=== PATIENT | male | born 2000 | race Caucasian/White ===

== ENCOUNTER 2021-11-02 18:14 | Emergency (ER) | payer OTHER, SELFPAY ==
[2021-11-02 18:15] VITALS: BP 162/84; PULSE 93; RESP 14; TEMP 36.2; O2SAT 98; BMI 23.2
--- NOTE | 2021-11-02 18:42 | EX.ED.UPPERE ---
HPI History of Present Illness HPI Narrative: Patient presents with right hand injury that occurred 4 days ago. Patient states that his thumb was hyperextended. Patient denies any snapping or popping sensation. Patient states pain is constant. Patient describes the pain as sharp. Patient states it is worse with movement and better with rest. Patient denies any paresthesias or weakness. Patient denies any other injuries. Chief Complaint: Upper Extremity Injury Informant: patient Occured/Mechanism Comment: Hyperextension right thumb Onset/Context/Timing Onset: Days (4) Worsened by: Movement Relieved by: Rest Associated Symptoms Associated Symptoms: Negative for Parasthesia, Weakness and Loss of Funtion PFSH PFSH Medical History no medical history no medical history Home Medications NK 11/02/21 [History Last Taken Unknown] Allergy/AdvReac Type Severity Reaction Status Date / Time No Known Allergies Allergy Verified 11/02/21 18:17 Surgical History no surgical history no surgical history Social History Smoking Status: Unknown if ever smoked ROS ROS ED Constitutional Constitutional ED: Denies chills or fever(s) Eyes Eyes: Denies blurry vision or change in vision ENT ENT ED: Reports rhinorrhea; Denies sore throat Cardiovascular Cardiovascular: Denies chest pain or palpitations Respiratory/Chest Respiratory/Chest: Denies cough or dyspnea Gastrointestinal Gastrointestinal: Denies nausea or vomiting Genitourinary Genitourinary ED: Denies dysuria or hematuria Musculoskeletal Musculoskeletal: Denies back pain or neck pain Integumentary Denies abscess or rash Neurologic Neurologic: Denies headache(s) or weakness Allergic/Immunologic Allergic/Immunologic ED: Denies mouth swelling or urticaria EXAM Physical Exam Const Vital Signs: 11/02/21 18:15 Temperature 97.2 F L Temperature Source Temporal Pulse Rate 93 Respiratory Rate 14 Blood Pressure 162/84 H Blood Pressure Mean 110 Pulse Ox 98 Oxygen Delivery Method Room Air Positive well nourished and well developed General Appearance ED: well developed and NAD HEENT Reports moist mucous membranes Neck full ROM Extremity Extremity Narrative: There is tenderness over the right first metacarpal and MP joint. There is no obvious deformity noted. Range of motion was limited in flexion of the MP joint of the right thumb secondary to pain. There is no tenderness over the second metacarpal. There is no tenderness over the anatomic snuffbox. Sensation was intact to light touch in all digits. Capillary refill was less than 2 seconds in all digits. Radial pulses are equal bilaterally. Neuro oriented x3, CN's II-XII intact bilaterally, moves all extremities, no focal motor deficits and no sensory deficits noted Sensorium / Orientation: alert Psych mental status grossly normal MDM MDM MDM Narrative Medical decision making narrative: X-rays of the right hand were obtained. There are 3 views. On my interpretation, there is no acute fracture. There is no dislocation. There is no soft tissue swelling. Radiologist also interpreted the x-rays and agrees. Patient was advised of his findings. Patient was instructed to ice and elevate the right hand. Patient was instructed to take Tylenol or ibuprofen as needed for pain. Patient understood and was agreeable with the plan. All questions were answered. Discharge Plan Triage Chief Complaint: Upper Extremity Injury ED Provider: Jacobo Mathew Dx/Rx/DC Orders Clinical Impression: Sprain of hand, thumb, right Instructions: ED Finger Sprain Prescriptions: No Action NK RF: 0 Primary Care Provider: Care Physician,No Primary Referrals: Isidoro Woods MD [NON-STAFF] - 5-7 Days Care Physician,No Primary [Primary Care Provider] - Disposition Disposition: Home, Self Care
--- NOTE | 2021-11-02 19:40 | RAD_ITS ---
STUDY: RIGHT HAND X-RAY SERIES OF 1930 HOURS ON 11/02/2021 REASON FOR EXAM: 20-year-old male with a right hand injury resulting in pain. TECHNIQUE: 3 view(s) of the hand. COMPARISON: None. FINDINGS: No fractures or dislocations. No arthritic or degenerative changes. There is mild soft tissue swelling in the palmar Normal radiocarpal articulation. Normal distal radioulnar joint. Normal visualized carpal bones. Normal carpal articulations Normal carpometacarpal articulation of the thumb. Normal second through fifth carpometacarpal joints. Normal metacarpi. Normal metacarpophalangeal joint of the thumb. Normal interphalangeal joint of the thumb. Normal proximal and distal phalanges of the thumb. Normal metacarpophalangeal joints of the second through fifth fingers. Normal proximal and distal interphalangeal joints of the second through fifth fingers. Normal phalanges of the second through fifth fingers. RAD/Hand Min 3 Views IMPRESSION: 1. Normal examination of the right hand. 2. No fractures or dislocations. 3. No arthritic or degenerative changes. 4. Mild soft tissue swelling in the palmar region. Electronically Signed: Obdulio Mccoy MD at 20:22 EDT ,
== END 2021-11-02 21:46 | disposition home or self-care (01) ==
PROVIDERS: Emergency Provider Emergency Medicine; Visit Provider Emergency Medicine
DX: S63.601A Unspecified sprain of right thumb, initial encounter (principal); X50.9XXA Other and unspecified overexertion or strenuous movements or postures, initial encounter; Y93.9 Activity, unspecified; Y92.9 Unspecified place or not applicable
CPT/HCPCS: 73130; 99283